=== PATIENT | female | born 1955 | race Caucasian/White ===

== ENCOUNTER → 2017-03-04 | Outpatient (CLI) | payer OTHER | LOC: KOH-I 13:17 | DX: M54.2 Cervicalgia (principal); M50.323 Other cervical disc degeneration at C6-C7 level | CPT/HCPCS: 72050; 73030 ==

== ENCOUNTER → 2017-04-22 | Outpatient (CLI) | payer OTHER | LOC: MAMO 12:52 | DX: Z12.31 Encounter for screening mammogram for malignant neoplasm of breast (principal) | CPT/HCPCS: G0202 ==